=== PATIENT | female | born 1970 | race Asian ===

== ENCOUNTER 2017-09-02 12:35 | Emergency (ER) | payer OTHER ==
[~2017-09-02] VITALS: Ht 160 cm; Wt 55.3 kg
[~2017-09-02 12:35] MED LIST: [UNRECOGNIZED DRUG - REMARK]
[2017-09-02] MEDS ORDERED: oxyCODONE/APAP 10/325 1 TAB TABLET ONE (12:47)
--- NOTE | 2017-09-02 12:51 | PHYS DOC ---
Past History Past Medical History: No Pertinent History Past Surgical History: No Surgical History Smoking: Non-smoker Alcohol Use: None Drug Use: None Adult General Chief Complaint Chief Complaint: ANIMAL BITE [facility] HPI Patient is a 46 year old female who presents with onset prior to arrival was raking leaves at her house when she went to pet a dog is unknown to her and the dog bit her left forearm. She is complaining of pain to that area with multiple lacerations. Denies any other trauma or injury. Animal control was contacted. Dog has unknown immunization status. Review of Systems Review of Systems Constitutional: Denies fever or chills [] Eyes: Denies change in visual acuity, redness, or eye pain [] HENT: Denies nasal congestion or sore throat [] Respiratory: Denies cough or shortness of breath [] Cardiovascular: No additional information not addressed in HPI [] GI: Denies abdominal pain, nausea, vomiting, bloody stools or diarrhea [] : Denies dysuria or hematuria [] Musculoskeletal: Denies back pain or joint pain [] Integument: Denies rash or skin lesions [] Neurologic: Denies headache, focal weakness or sensory changes [] Endocrine: Denies polyuria or polydipsia [] All other systems were reviewed and found to be within normal limits, except as documented in this note. Allergies Allergies Allergies Coded Allergies Type Severity Reaction Last Updated Verified No Known Drug Allergies 11/30/13 No Physical Exam Physical Exam Constitutional: Well developed, well nourished, moderate acute distress, non- toxic appearance. [] HENT: Normocephalic, atraumatic, bilateral external ears normal, oropharynx moist, no oral exudates, nose normal. [] Eyes: PERRLA, EOMI, conjunctiva normal, no discharge. [] Neck: Normal range of motion, no tenderness, supple, no stridor. [] Cardiovascular:Heart rate regular rhythm, no murmur [] Lungs & Thorax: Bilateral breath sounds clear to auscultation [] Abdomen: Bowel sounds normal, soft, no tenderness, no masses, no pulsatile masses. [] Skin: Warm, dry, no erythema, no rash. [] Back: No tenderness, no CVA tenderness. [] Extremities: Examination left upper extremity no pain with range of motion left shoulder or elbow multiple lacerations involving the dorsum of the left forearm and volar forearm distally. Neurovascularly intact and tendon function intact. No obvious deformities noted.[] Neurologic: Alert and oriented X 3, normal motor function, normal sensory function, no focal deficits noted. [] Psychologic: Affect normal, judgement normal, mood normal. [] EKG EKG [] Radiology/Procedures Radiology/Procedures X-ray left forearm left hand[] acute fracture or foreign body seen per radiology port and my review X-ray left elbow and humerus negative for fracture dislocation per radiology report and my review Course & Med Decision Making Course & Med Decision Making Pertinent Labs and Imaging studies reviewed. (See chart for details) [Wound cleaning. X-rays obtained. Tetanus updated. Likely will need to give rabies vaccine and immunoglobulin pending information from animal control. Plan aggressive wound care and suturing. Prescription for pain meds Percocet and Augmentin. Needs close follow-up for a wound recheck in the next 48-72 hours.] Procedure: multiple laceration repair left forearm--- all wounds were anesthetized with 1% lidocaine some buffered some without approximately total volume of 10 mL wounds were copiously irrigated with sterile saline under pressure skin was prepped with Betadine usual sterile fashion; multiple interrupted sutures placed; all wounds were explored no foreign body seen no tendon involvement; neurovascularly intact in the hand pre-and post procedure. Dorsal forearm there were two 2 cm length lacerations two sutures were placed in each one of those there were three 1 cm lacerations one suture was placed in each of those; volar forearm: two 3 cm lacs four interup sutures placed, one 1 cm lac one suture placed. Reasonably well approximated. total length of sutured wounds 16 centimeters Rabies immunization follow-up on September 05 day 3, day 7, 30 day 14. Dragon Disclaimer Dragon Disclaimer This electronic medical record was generated, in whole or in part, using a voice recognition dictation system. Departure Departure: Impression: Primary Impression: Dog bite of left forearm Additional Impressions: Laceration of multiple sites of left upper extremity Sprain of left elbow Rabies, need for prophylactic vaccination against Disposition: 01 HOME, SELF-CARE Condition: STABLE Patient Instructions: Animal Bite, [id number], Sutured Wound Care, Easy-to- Read Additional Instructions: Follow-up suture removal 1 week. strongly recommend wound recheck within 48-72 hours in the ED. Please follow-up for rabies vaccination on the September 05, September 09, and September 16. Scripts Amoxicillin/Potassium Clav (AUGMENTIN 875-125 TABLET) 1 Each Tablet 1 TAB PO BID, #14 TAB Prov: FRIDA MINA MD 09/02/17 Oxycodone Hcl/Acetaminophen (PERCOCET 5-325 MG TABLET) 1 Each Tablet 1-2 TAB PO Q4-6HRS, #12 TAB Prov: FRIDA MINA MD 09/02/17 Problem Qualifiers FRIDA MINA MD Sep 02, 2017 12:51
[2017-09-02] MEDS ORDERED: LIDOCAINE 1% Multi-Dose 20 ML VIAL. ONE (13:11)
--- NOTE | 2017-09-02 13:13 | RAD ---
Left forearm, 2 views, 09/02/2017: History: Dog bite No fracture or bony abnormality is detected. There are streaky gas collections in the soft tissues compatible with the history of penetrating trauma. IMPRESSION: No acute bony abnormality is detected. Left hand, 3 views, 09/02/2017: No fracture or dislocation is identified. IMPRESSION: No significant bony abnormality is detected.
[2017-09-02] MEDS ORDERED: DIPHTH,PERTUSS(ACELL),TET TOX 0.5 ML DISP.SYRIN. VAX IM ONE (13:15)
[2017-09-02] MEDS ORDERED: oxyCODONE/APAP 10/325 1 TAB TABLET PO ONE (13:15)
[2017-09-02] MEDS ORDERED: LIDOCAINE WITH 8.4% SOD BICARB 3 ML DISP.SYRIN. IJ ONE (13:15)
[2017-09-02] MEDS ORDERED: RABIES IMMUNE GLOBULIN PF 150 UNIT/ML 10ML VIAL. VAX IM ONE ×2 (14:15→14:30)
--- NOTE | 2017-09-02 14:27 | RAD ---
Left elbow, 3 views, 11/02/2016: History: Dog bite, injury No fracture or dislocation is identified. There is minimal spurring at the elbow joint. No joint effusion is evident. IMPRESSION: No acute left elbow abnormality is detected. Left humerus, 2 views, 09/02/2017: No fracture or bony abnormality is detected. IMPRESSION: Normal left humerus
[2017-09-02] MEDS ORDERED: RABIES VIRUS VACC PF 2.5 UNIT / 1 ML VIAL. VAX IM ONE (14:30)
[2017-09-02] MEDS ORDERED: OXYC-323 PO (14:55)
[2017-09-02] MEDS ORDERED: AMOX1TAB61 PO (14:55)
[2017-09-02 15:15] VITALS: BP 122/84
[2017-09-06] MEDS ORDERED: [UNRECOGNIZED DRUG - CODE] VAX IM (13:25)
[2017-09-06] MEDS ORDERED: OXYC1TAB8 PO (13:25)
[2017-09-06] MEDS ORDERED: LACT1CAP19 PO (13:25)
[2017-09-06] MEDS ORDERED: ONDA4TAB10 SL (13:25)
[2017-09-06] MEDS ORDERED: AMPI1.5V IJ (13:30)
== END 2017-09-02 15:15 | disposition home or self-care (01) ==
LOC: ER 12:35
DX: S51.852A Open bite of left forearm, initial encounter (principal); S53.402A Unspecified sprain of left elbow, initial encounter; W54.0XXA Bitten by dog, initial encounter; Y93.H1 Activity, digging, shoveling and raking; Y99.8 Other external cause status; Y92.009 Unspecified place in unspecified non-institutional (private) residence as the place of occurrence of the external cause
CPT/HCPCS: 12005; 73060; 73080; 73090; 73130; 90376; 90471; 90472; 90675; 90715; 96372; 99284-25

== ENCOUNTER 2017-09-04 11:45 | Inpatient (IN) | payer OTHER ==
[~2017-09-04] VITALS: Ht 157.5 cm; Wt 56.9 kg
[~2017-09-04 11:45] MED LIST changes: +AMOX1TAB61 PO; +OXYC-323 PO
[2017-09-04] MEDS ORDERED: ZOLPIDEM 5 MG TABLET. PO PRN (12:00)
[2017-09-04] MEDS: AMPICILLIN/SULBACTAM 1.5 GM in IV NORMAL SALINE 50ML 50 ML IV SCH ×3 (12:00→23:07)
[2017-09-04 12:19] VITALS: BP 117/69
[2017-09-04] MEDS: oxyCODONE/APAP 7.5/325 1 TAB TABLET PO PRN ×2 (13:03→20:24)
[2017-09-04 13:25] LABS: BASO # 0.1 x10^3/uL (0.0-0.2); BASO % 1 % (0-3); EOS # 0.2 x10^3/uL (0.0-0.7); EOS % 3 % (0-3); HEMATOCRIT 39.2 % (36.0-47.0); HEMOGLOBIN 13.6 g/dL (12.0-15.5); LYMPH # 1.9 x10^3/uL (1.0-4.8); LYMPH % 27 % (24-48); MEAN CORPUSCULAR HEMOGLOBIN 32 pg (25-35); MEAN CORPUSCULAR HGB CONC 35 g/dL (31-37); MEAN CORPUSCULAR VOLUME 93 fL (79-100); MONO # 0.5 x10^3/uL (0.0-1.1); MONO % 7 % (0-9); NEUT # 4.4 x10^3uL (1.8-7.7); NEUT % 62 % (31-73); PLATELET COUNT 209 x10^3/uL (140-400); RED BLOOD COUNT 4.23 x10^6/uL (3.50-5.40); RED CELL DISTRIBUTION WIDTH 12.1 % (11.5-14.5)
[2017-09-04 13:32] LABS: CALCIUM 9.3 mg/dL (8.5-10.1); GFR 59.2; POTASSIUM 3.3 mmol/L (3.5-5.1)
[2017-09-04 14:29] LABS: SEDIMENTATION RATE 41 (0-25)
[2017-09-04 15:20] VITALS: BP 93/54
[2017-09-04 19:53] VITALS: BP 132/74
[2017-09-04 23:27] VITALS: BP 120/74
[2017-09-05] MEDS: AMPICILLIN/SULBACTAM 1.5 GM in IV NORMAL SALINE 50ML 50 ML IV SCH ×4 (05:16→22:09)
[2017-09-05] MEDS: oxyCODONE/APAP 7.5/325 1 TAB TABLET PO PRN ×4 (05:29→22:10)
[2017-09-05 05:45] VITALS: BP 132/82
[2017-09-05 05:48] LABS: BASO # 0.1 x10^3/uL (0.0-0.2); BASO % 1 % (0-3); EOS # 0.2 x10^3/uL (0.0-0.7); EOS % 3 % (0-3); HEMATOCRIT 37.4 % (36.0-47.0); HEMOGLOBIN 12.9 g/dL (12.0-15.5); LYMPH # 1.5 x10^3/uL (1.0-4.8); LYMPH % 24 % (24-48); MEAN CORPUSCULAR HEMOGLOBIN 32 pg (25-35); MEAN CORPUSCULAR HGB CONC 34 g/dL (31-37); MEAN CORPUSCULAR VOLUME 91 fL (79-100); MONO # 0.5 x10^3/uL (0.0-1.1); MONO % 8 % (0-9); NEUT # 3.8 x10^3uL (1.8-7.7); NEUT % 64 % (31-73); PLATELET COUNT 179 x10^3/uL (140-400); RED BLOOD COUNT 4.09 x10^6/uL (3.50-5.40); RED CELL DISTRIBUTION WIDTH 12.1 % (11.5-14.5)
[2017-09-05 05:50] LABS: CREATININE 0.7 mg/dL (0.6-1.0); GFR 89.3; POTASSIUM 3.9 mmol/L (3.5-5.1)
[2017-09-05] MEDS ORDERED: RABIES VIRUS VACC PF 2.5 UNIT / 1 ML VIAL. VAX IM ONE (08:00)
[2017-09-05 11:01] VITALS: BP 133/81
--- NOTE | 2017-09-05 11:30 | PN ---
DATE: SUBJECTIVE: A 46-year-old female in with cellulitis to her left arm. The patient is having pain on movement of her fingers, although she is able to move them. She says it is painful. We will try to get an MRI scan tomorrow, today being Wednesday and make further evaluation. OBJECTIVE: VITAL SIGNS: Otherwise, blood pressure 130/80, respiration 16, pulse 70, afebrile. LUNGS: Clear. CARDIOVASCULAR: Stable. EXTREMITIES: The swelling to the left arm is somewhat diminished. The redness is not quite as intense, but still very tender to palpation of the left forearm and is noted whenever she moves, the flexor tendons seem to be affected, we will try to get an MRI scan on that. IMPRESSION: Cellulitis to the left forearm, possible affecting the flexor tendons, dog bite to the left forearm. Also receiving rabies vaccine. Hypokalemia, being corrected as well. KENROY ARGUELLES MD DR: TERI/brigette JOB#: [id number] / [id number]
[2017-09-05 15:14] VITALS: BP 117/67
[2017-09-05] MEDS: ONDANSETRON PF 4 MG/2 ML VIAL. IV PRN ×2 (18:19→22:09)
[2017-09-05 20:30] VITALS: BP 115/70
[2017-09-05] MEDS: LACTOBACILLUS RHAMNOSUS GG 1 CAPSULE. PO SCH (22:09)
[2017-09-06] MEDS: AMPICILLIN/SULBACTAM 1.5 GM in IV NORMAL SALINE 50ML 50 ML IV SCH ×2 (05:12→11:22)
[2017-09-06] MEDS: oxyCODONE/APAP 7.5/325 1 TAB TABLET PO PRN ×2 (05:13→11:28)
[2017-09-06] MEDS: ONDANSETRON PF 4 MG/2 ML VIAL. IV PRN ×2 (05:23→11:28)
[2017-09-06 06:26] VITALS: BP 143/93
[2017-09-06 08:01] LABS: BASO % 1 % (0-3); EOS # 0.3 x10^3/uL (0.0-0.7); EOS % 5 % (0-3); HEMATOCRIT 37.4 % (36.0-47.0); HEMOGLOBIN 12.7 g/dL (12.0-15.5); LYMPH # 1.6 x10^3/uL (1.0-4.8); LYMPH % 25 % (24-48); MEAN CORPUSCULAR HEMOGLOBIN 32 pg (25-35); MEAN CORPUSCULAR HGB CONC 34 g/dL (31-37); MEAN CORPUSCULAR VOLUME 93 fL (79-100); MONO # 0.5 x10^3/uL (0.0-1.1); MONO % 7 % (0-9); NEUT # 3.8 x10^3uL (1.8-7.7); NEUT % 62 % (31-73); PLATELET COUNT 196 x10^3/uL (140-400); RED BLOOD COUNT 4.03 x10^6/uL (3.50-5.40); RED CELL DISTRIBUTION WIDTH 12.3 % (11.5-14.5); WHITE BLOOD COUNT 6.2 x10^3/uL (4.0-11.0)
[2017-09-06 08:16] LABS: ALBUMIN/GLOBULIN RATIO 0.8 (1.0-1.7); CALCIUM 8.9 mg/dL (8.5-10.1); CREATININE 0.8 mg/dL (0.6-1.0); GFR 76.6; POTASSIUM 4.2 mmol/L (3.5-5.1); TOTAL BILIRUBIN 0.4 mg/dL (0.2-1.0); TOTAL PROTEIN 6.6 g/dL (6.4-8.2)
[2017-09-06] MEDS: LACTOBACILLUS RHAMNOSUS GG 1 CAPSULE. PO SCH (09:09)
--- NOTE | 2017-09-06 10:17 | DS ---
DATE OF DISCHARGE: 09/06/2017 SUBJECTIVE: Bitter on her left forearm 5 days ago, got increasingly worse despite IM medications of Rocephin IM injection of Rocephin. The patient's inflammation started in the lower left forearm and radiated up into the left upper arm. She had severe tenderness on flexion of her fingers. The patient was placed on IV Unasyn. PICC line placed. The patient made excellent progress during the rest of her hospitalization. Sed rate was 41. The rest of her labs are basically stable. Potassium is slightly low at 3.3 that came up and was corrected. In any case, the patient made good progress during the rest of her hospitalization. She will be discharged home. Follow up as an outpatient. Continue on IV Unasyn as well as get an MRI scan of the lower left forearm and make sure that there has been no tendon damage there. IMPRESSION: Cellulitis to the left forearm and left upper arm secondary to dog bite, unresponsive to intramuscular antibiotics as an outpatient. The patient was informed of the situation. She will be discharged home, followed up as an outpatient. PLAN: Regular diet, decreased activity. Continue on IV Unasyn for at least a week. Follow up as well and also she will require further rabies shots. See MRAD and decreased activity. Regular diet. KENROY ARGUELLES MD DR: TERI/brigette JOB#: [id number] / [id number]
[2017-09-06] MEDS ORDERED: [UNRECOGNIZED DRUG - CODE] VAX IM (13:25)
[2017-09-06] MEDS ORDERED: ONDA4TAB10 SL (13:25)
[2017-09-06] MEDS ORDERED: OXYC1TAB8 PO (13:25)
[2017-09-06] MEDS ORDERED: LACT1CAP19 PO (13:25)
[2017-09-06] MEDS ORDERED: AMPI1.5V IJ (13:30)
[2017-09-09] MEDS ORDERED: RABIES VIRUS VACC PF 2.5 UNIT / 1 ML VIAL. VAX IM ONE (08:00)
== END 2017-09-06 15:10 | disposition home health service (06) | DRG 603 ==
LOC: 1 SOUTH 11:45
PROVIDERS: ADMIT Family Medicine; ATTEND Family Medicine
PROC: 02HV33Z Insertion of Infusion Device into Superior Vena Cava, Percutaneous Approach (ICD-10-PCS; principal; 2017-09-04)
PROC: B548ZZA Ultrasonography of Superior Vena Cava, Guidance (ICD-10-PCS; 2017-09-04)
DX: L03.114 Cellulitis of left upper limb (principal); E87.6 Hypokalemia; F17.210 Nicotine dependence, cigarettes, uncomplicated; Z88.6 Allergy status to analgesic agent; Z82.49 Family history of ischemic heart disease and other diseases of the circulatory system; Z80.9 Family history of malignant neoplasm, unspecified; Z83.3 Family history of diabetes mellitus; Z82.5 Family history of asthma and other chronic lower respiratory diseases
CPT/HCPCS: 36415; 36569; 80048; 80053; 83605; 85025; 85651; 87040; 90675; J0295; J2405

== ENCOUNTER → 2019-12-25 | Outpatient (CLI) | payer OTHER ==
[2017-10-03 16:14] VITALS: BP 120/72
[~2019-12-25] MED LIST changes: +AMPI1.5V IJ; +LACT1CAP19 PO; +ONDA4TAB10 SL; -OXYC-323 PO; +OXYC1TAB15 PO; +OXYC1TAB8 PO; +[UNRECOGNIZED DRUG - CODE] VAX IM
--- NOTE | 2019-12-25 14:07 | RAD ---
EXAM: Right shoulder, 3 views. HISTORY: Pain. COMPARISON: None. FINDINGS: 3 views of the right shoulder obtained. There is no fracture, dislocation or subluxation. IMPRESSION: No acute osseous finding. Electronically signed by: Matilde Morris MD (12/25/2019 2:04 PM) [id number]
== END | disposition home or self-care (01) ==
LOC: DXRAD 12:20
PROVIDERS: ATTEND Family Medicine
DX: M25.511 Pain in right shoulder (principal)
CPT/HCPCS: 73030